=== PATIENT | male | born 1970 | race Caucasian/White ===

== ENCOUNTER 2025-02-10 07:39 | Day surgery (SDC) | payer OTHER ==
--- NOTE | 2025-02-04 13:57 | ELECTROCARDIOGRAPH REPORT ---
[facility] Test Date: 2025-02-04 Test Time: 13:54:32 Pat Name: RAMIRO NEIL Department: [facility]-PRE-OP Patient ID: [facility]-[id number] Room: Gender: M [employer]ting Control Clerk: CARMINE : 1970 Requested By: MONCHO CHAHAL Order Number: [id number] Reading MD: Dr. Evelyn Couch Measurements Intervals [place] Rate: 62 P: 46 VT: 153 QRS: 42 QRSD: 94 T: 59 QT: 369 QTc: 375 Interpretive Statements Sinus rhythm Electronically Signed On 02-05-2025 8:51:[address] Evelyn Couch Please click the below link to view image of tracing.
[2025-02-04 14:14] LABS: BASOPHILS # (AUTO) 0.1 X10'3 (0-0.2); BASOPHILS % (AUTO) 0.7 % (0-1); EOSINOPHILS # (AUTO) 0.1 X10'3 (0-0.9); EOSINOPHILS % (AUTO) 1.8 % (0-6); LYMPHOCYTES # (AUTO) 2.1 X10'3 (1.1-4.8); LYMPHOCYTES % (AUTO) 29.5 % (21-51); MEAN CORPUSCULAR HEMOGLOBIN 30.2 PG (27.0-31.0); MEAN CORPUSCULAR HGB CONC 34.2 g/dL (33.0-36.5); MEAN CORPUSCULAR VOLUME 88.3 FL (78-98); MONOCYTES # (AUTO) 0.6 X10'3 (0-0.9); NEUTROPHILS # (AUTO) 4.2 X10'3 (1.8-7.7); PRE OP HEMOGLOBIN 15.7 g/dL (14.0-17.9); PRE OP PLATELET COUNT 247 X10'3 (140-440); RED BLOOD COUNT 5.21 X10'6 (4.70-6.10); RED CELL DISTRIBUTION WIDTH 12.4 % (11.5-14.5)
[2025-02-04 14:33] LABS: ALBUMIN 4.1 G/DL (3.4-5.0); ALBUMIN/GLOBULIN RATIO 1.4 (1.1-1.5); ALKALINE PHOSPHATASE 73 IU/L (46-116); BLOOD UREA NITROGEN 14 MG/DL (7-18); BUN/CREATININE RATIO 12.8 (10.0-20.0); CALCIUM 9.1 MG/DL (8.5-10.1); CHLORIDE 107 MMOL/L (99-107); CREATININE 1.09 MG/DL (0.60-1.10); PRE OP ALT 26 U/L (30-65); PRE OP ANION GAP 6 (8-16); PRE OP AST 17 U/L (10-37); PRE OP BILIRUB, TOTAL 0.7 MG/DL (0.0-1.0); PRE OP GLUCOSE 96 MG/DL (70-104); PRE OP POTASSIUM 4.2 MMOL/L (3.4-5.1); PRE OP SODIUM 142 MMOL/L (135-145); eGFR 70 ML/MIN
[~2025-02-10] VITALS: Ht 182.9 cm; Wt 89.4 kg
[2025-02-10] VITALS (8 sets, daily range): BP systolic 127–147; BP diastolic 89–97; PULSE 54–72; RESP 12–17; TEMP 97.3; O2SAT 96–98
[~2025-02-10 07:39] MED LIST: BUPIVAcaine/PF 2.5mg/ml (0.25%) 10ml vial ONE; LIDOcaine 2% (20mg/ml) 5ml vial ONE; NO HOME MEDS
[2025-02-10] MEDS: famotidine 20mg tablet PO ONE (08:45)
[2025-02-10] MEDS: ceFAZolin 2gm in dextrose, iso 50 ML IV ONE (08:46)
[2025-02-10] MEDS: ringers solution, lacted 1,000 ML IV SCH (08:46)
[2025-02-10] MEDS ORDERED: LIDOcaine 1% 30ml preserv. free vial ONE (09:19)
[2025-02-10] MEDS ORDERED: fentaNYL/PF 50MCG/1 ML 2ML syringe ONE (09:22)
[2025-02-10] MEDS ORDERED: midazolam 1 mg/ML 2ml injection ONE (09:22)
[2025-02-10] MEDS ORDERED: propofol 10mg/ml 20ml vial IV ONE (09:48)
--- NOTE | 2025-02-10 13:28 | OPERATIVE REPORT ---
Operative Report Providers to ~ Date of Procedure: February 10, 2025 Pre-Operative Diagnosis: Left thumb carpometacarpal joint arthritis Post-Operative Diagnosis SAME as PRE-Op Procedure Performed Left thumb ligament reconstruction tendon interposition arthroplasty Surgeon: Shan Ott MD Chuck Wagon Driver None Anesthesiologist: Ricky Lopez Type of Anesthesia: Regional Findings: Estimated Blood Loss: None Specimen Removed: None Description of Procedure: The patient is a 54-year-old man with severe thumb carpometacarpal joint arthritis refractory to nonsurgical treatment. Surgery is indicated to relieve symptoms. The risks and benefits were discussed with the patient. Some of the risks of the type of procedure include but are not limited to infection, bleeding, nerve or vessel damage, numbness over the surgical site, stiffness and incomplete relief of symptoms. He agreed to proceed. He was brought to the operating room and the arm was prepped and draped in usual manner after the block was given. Proper time-out procedure was observed. First incision was made 8 cm proximal to the volar wrist crease over the flexor carpi radialis. The tendon was transected at that level and the incision was closed. The 2nd incision was made over the thumb metacarpal dorsally curving onto the volar wrist crease. Nerves were identified and mobilized. An arthrotomy was made around the trapezium which was then removed using the sagittal saw. The FCR tendon was then delivered subcutaneously into the thumb wound leaving it attached at the base of the 2nd metacarpal. A tunnel was made in the metacarpal using a bur. The proximal end of the tendon was then passed through the base of the metacarpal tunnel out dorsally. It was then pulled to itself cinched down and sutured with FiberWire suture. The remainder of the tendon was folded over as an anchovy tendon interposition and secured in the space created by the trapezium excision. This completed the suspension plasty and interposition. The incision was then irrigated. The capsule was closed over the graft and the skin was closed in layers. Marcaine was injected and a sterile dressing was applied including a plaster thumb spica splint. The tourniquet was released the hand perfused well and the patient was taken to the recovery room in stable condition SHAN OTT Jr., MD February 10, 2025 13:28
== END 2025-02-10 11:39 | disposition home or self-care (01) ==
LOC: PAS 07:39
PROVIDERS: ATTEND Orthopaedic Surgery Hand Surgery
DX: M18.12 Unilateral primary osteoarthritis of first carpometacarpal joint, left hand (principal); M19.071 Primary osteoarthritis, right ankle and foot; Z98.890 Other specified postprocedural states; Z87.891 Personal history of nicotine dependence; Z79.899 Other long term (current) drug therapy
CPT/HCPCS: 25312; 25448; 36415; 80053; 82948; 85025; 93005; J2003; J2250; J2704; J3010; J3490; J7030; J7120; Z7506; Z7512; A4215; A4618; A6449; A7000